=== PATIENT | male | born 1955 | race Caucasian/White ===

== ENCOUNTER 2019-10-19 08:11 | Emergency (ER) | payer OTHER ==
[~2019-10-19] VITALS: Ht 157.5 cm; Wt 67.6 kg
[2019-10-19 08:30] VITALS: Ht 157.5 cm; Wt 67.6 kg
[2019-10-19 11:08] VITALS: BP 130/60
== END 2019-10-19 11:08 | disposition home or self-care (01) ==
LOC: ED 08:11
DX: M54.5 Low back pain (principal)

== ENCOUNTER 2020-10-30 16:27 | Emergency (ER) | payer OTHER ==
[~2020-10-30] VITALS: Ht 162.6 cm; Wt 69.4 kg
[~2020-10-30 16:27] MED LIST: SYN125 PO
[2020-10-30 16:35] VITALS: Ht 162.6 cm; Wt 69.4 kg
[2020-10-30 18:25] LABS: BASOPHIL % 0.8 % (0.2-1.5); PLATELET COUNT 359 x10^3mcL (152-348); RED CELL DISTRIBUTION WIDTH 14.4 % (12.1-16.2)
[2020-10-30 18:42] LABS: ALBUMIN 3.6 g/dL (3.4-5.0); ALKALINE PHOSPHATASE 125 U/L (46-116); ALT/SGPT 16 U/L (16-63); AST/SGOT 31 U/L (15-37); BILIRUBIN TOTAL 0.2 mg/dL (0.20-1.00); CHLORIDE SERUM 100 mmol/L (98-107); CREATININE SERUM 0.9 mg/dL (0.7-1.3); GFR1 > 60 mL/min; GLUCOSE SERUM 91 mg/dL (74-106); POTASSIUM SERUM 3.6 mmol/L (3.5-5.1); SODIUM SERUM 140 mmol/L (136-145)
[2020-10-30 18:45] LABS: TOTAL PROTEIN, SERUM 8.5 g/dL (6.4-8.2)
[2020-10-30 18:46] LABS: CALCIUM 5.7 mg/dL (8.5-10.1)
[2020-10-30 22:30] VITALS: BP 136/75
== END 2020-10-30 22:30 | disposition home or self-care (01) ==
LOC: ED 16:27
PROVIDERS: Student in an Organized Health Care Education/Training Program
DX: K57.30 Diverticulosis of large intestine without perforation or abscess without bleeding (principal); K92.1 Melena; E83.51 Hypocalcemia
CPT/HCPCS: J0610; J7030; J7040; Q9967